=== PATIENT | female | born 1945 | race Two or more races ===

== ENCOUNTER 2023-06-14 16:28 | Emergency (ER) | payer MEDICARE, OTHER ==
[~2023-06-14] VITALS: Ht 160 cm; Wt 63.0 kg
[~2023-06-14 16:28] MED LIST: CALC1TAB PO; DEXT20TA6 PO; DEXT30TA10 PO; DILT-2 PO; DULO60CA45 PO; FERR324T PO; FOLI1TAB2 PO; FURO40TA5 PO; HYDR-3974 PO; HYDR-4076 PO; LEVO50TA8 PO; MODA200T22 PO; POTA20TA83 PO; PRAM1.5T3 PO; PRAV40TA3 PO; RANI150T8 PO
[2023-06-14] MEDS ORDERED: CEPH250S PO (21:34)
[2023-06-14] MEDS ORDERED: CEPH750C7 PO (21:38)
[2023-06-14] MEDS ORDERED: CEPH500C2 PO (21:40)
[2023-06-14 23:41] VITALS: BP 129/78; TEMP 97; O2SAT 96
== END 2023-06-14 23:42 ==
LOC: ER 16:41
DX: S01.01XA Laceration without foreign body of scalp, initial encounter (principal); L03.115 Cellulitis of right lower limb; I10 Essential (primary) hypertension; J44.9 Chronic obstructive pulmonary disease, unspecified; Z79.899 Other long term (current) drug therapy; Z91.040 Latex allergy status; W01.198A Fall on same level from slipping, tripping and stumbling with subsequent striking against other object, initial encounter; Y93.89 Activity, other specified; Y92.89 Other specified places as the place of occurrence of the external cause; Y99.8 Other external cause status
CPT/HCPCS: 12001; 70450; 72125; 93971; 99284; A6403

== ENCOUNTER 2023-06-21 14:52 | Emergency (ER) | payer MEDICARE, OTHER ==
[~2023-06-21] VITALS: Ht 157.5 cm; Wt 63.0 kg
[~2023-06-21 14:52] MED LIST changes: +CEPH500C2 PO
[2023-06-21 15:17] VITALS: BP 108/55; TEMP 98.4
[2023-06-21 15:25] VITALS: O2SAT 95
== END 2023-06-21 15:29 | disposition home or self-care (01) ==
LOC: ER 14:52
DX: Z48.02 Encounter for removal of sutures (principal); I10 Essential (primary) hypertension; J44.9 Chronic obstructive pulmonary disease, unspecified; Z88.8 Allergy status to other drugs, medicaments and biological substances